=== PATIENT | female | born 1985 | race Caucasian/White ===

== ENCOUNTER 2024-09-07 11:55 | Emergency (ER) | payer BC ==
[~2024-09-07] VITALS: Ht 162.6 cm; Wt 62.0 kg
[2024-09-07 12:02] VITALS: O2SAT 99
[2024-09-07 12:07] VITALS: BP 152/53; PULSE 69; RESP 16; TEMP 98.7; O2SAT 99
[2024-09-07 15:10] LABS: HEMATOCRIT. 41.9 % (36.0-48.0); HEMOGLOBIN. 14.3 g/dL (12.0-16.0); MEAN CORPUSCULAR HEMOGLOBIN 33.8 pg (28.0-32.0); MEAN CORPUSCULAR HGB CONC 34.2 g/dL (31.0-37.0); MEAN CORPUSCULAR VOLUME 98.9 fL (81.0-99.0); MEAN PLATELET VOLUME 8.3 fl (7.4-10.4); PLATELET 343 x1000/uL (130-400); RED BLOOD CELL COUNT 4.24 mill/uL (4.2-5.4); RED CELL DISTRIBUTION WIDTH 12.4 % (11.6-14.6); WHITE BLOOD COUNT 14.4 x1000/uL (4.5-11.0)
[2024-09-07 15:17] LABS: CHLORIDE 105 mEq/L (98-107); SODIUM 139 mEq/L (136-145)
[2024-09-07 15:18] LABS: CALCIUM 9.9 mg/dL (8.7-10.4); CARBON DIOXIDE 26 mEq/L (21-32)
[2024-09-07 15:20] LABS: DIFFERENTIAL COMMENT 1
[2024-09-07 15:23] LABS: CREATININE 0.9 mg/dL (0.6-1.0); GLUCOSE 125 mg/dL (70-105); UREA NITROGEN BLOOD 18 mg/dL (9-23)
[2024-09-07 15:25] LABS: ALANINE AMINOTRANSFERASE 17 IU/L (10-49); ALBUMIN 4.7 g/dL (3.2-4.8); ASPARTATE AMINOTRANSFERASE 15 IU/L (<34); BILIRUBIN DIRECT 0.2 mg/dL (<=3.0)
[2024-09-07 15:26] LABS: BILIRUBIN TOTAL 0.5 mg/dL (0.1-1.0); PROTEIN TOTAL 7.8 g/dL (6.0-8.3)
[2024-09-07] MEDS: KETOROLAC 15MG/ML VIAL IV ONE (15:26)
[2024-09-07] MEDS: METOCLOPRAMIDE HCL 10MG/2ML VIAL IV STA (15:26)
[2024-09-07] MEDS: DIPHENHYDRAMINE 50MG/ML VIAL IV ONE (15:26)
[2024-09-07] MEDS: ACETAMINOPHEN 325MG TABLET PO ONE (15:27)
[2024-09-07] MEDS: SODIUM CHLORIDE 0.9% 1,000 ML IV ONE (15:31)
[2024-09-07 15:32] LABS: PLATELET ESTIMATE NORMAL
[2024-09-07] MEDS ORDERED: ONDA4TAB50 MT (17:16)
== END 2024-09-07 18:00 | disposition home or self-care (01) ==
LOC: ER 12:03
DX: B34.9 Viral infection, unspecified (principal)
CPT/HCPCS: 80076; 80048; 83690; 85025; 36415; 96361; 96374; 96375; 99284; J1200; J1885; J2765; J7030; Z7610 ×2